=== PATIENT | female | born 1960 | race Caucasian/White ===

== ENCOUNTER 2018-09-27 16:50 | Emergency (ER) | payer MEDICARE ==
[~2018-09-27] VITALS: Ht 160 cm; Wt 52.2 kg
[~2018-09-27 16:50] MED LIST: ALBU90OI INH; ALPR.5; AMOCLA500 PO; CEPH500 PO; CETI10 PO; CIPR500 PO; CIPRSO OU; CYCL10; DESO.05TCA TP; DIAZ10 PO; DIAZ2 PO; DIAZ5 PO; DIPH25 PO; DIPH50 PO; DOXY100 PO; DULO30 PO; DULO60 PO; FAMO20 PO; HYDACE5; HYDACE5 PO; HYDACE5325 PO; HYDHCL25 PO; HYDPAM50 PO; IBUP800; IBUP800 PO; Keflex500 MG PO; LORA1 PO; LORA2 PO; METPRE4DP PO; NAPR220 PO; OXYACE5T PO; PRED10 PO; PRED20 PO; PROACE100 PO; PROM12.5S PR; PROM25 PO; Percocet 5-3251 EACH PO; Prednisone20 MG PO; Roxicodone5 MG PO; SEPTRA DS; SKIEMOTC TOP; SULTRIDS PO; TEMA30 PO; TRAM50 PO; TRIA80TC TOP; TRIAOI IH; Valium5 MG PO; Vistaril25 MG PO; Zithromax250 MG PO
== END 2018-09-27 17:59 | disposition home or self-care (01) ==
LOC: ER 16:50
DX: F41.9 Anxiety disorder, unspecified (principal); Z91.013 Allergy to seafood; Z91.030 Bee allergy status; Z88.8 Allergy status to other drugs, medicaments and biological substances; F17.200 Nicotine dependence, unspecified, uncomplicated
CPT/HCPCS: 96372; 99283-25; J2060

== ENCOUNTER 2022-09-19 20:11 | Emergency (ER) | payer MEDICARE ==
[~2022-09-19] VITALS: Ht 160 cm; Wt 52.2 kg
[2022-09-19 20:47] VITALS: BP 153/95
[2022-09-19] MEDS ORDERED: CYMBALTA30 M2 PO (21:12)
[2022-09-19] MEDS ORDERED: AMOCLA875 PO (21:22)
== END 2022-09-19 21:28 | disposition home or self-care (01) ==
LOC: ER 20:11
DX: S51.811A Laceration without foreign body of right forearm, initial encounter (principal); F17.200 Nicotine dependence, unspecified, uncomplicated; Z91.030 Bee allergy status; Z91.048 Other nonmedicinal substance allergy status; Z91.013 Allergy to seafood; W55.03XA Scratched by cat, initial encounter
CPT/HCPCS: 12002; 99283-25

== ENCOUNTER → 2023-12-20 | Day surgery (SDC) | payer MEDICARE ==
[~2023-12-20] MED LIST changes: +AMOCLA875 PO; +ATORVASTATIN CA20 MG PO; +CYMBALTA30 M2 PO; +IBU800 M1 PO
== END ==
LOC: MOI US 07:16 → MOI MAM 08:00
DX: C50.411 Malignant neoplasm of upper-outer quadrant of right female breast (principal); Z91.030 Bee allergy status; Z91.013 Allergy to seafood
CPT/HCPCS: 19285; 77065; A4648; G0279

== ENCOUNTER 2023-12-23 08:31 | Day surgery (SDC) | payer MEDICARE ==
[~2023-12-23] VITALS: Ht 160 cm; Wt 47.5 kg
[~2023-12-23 08:31] MED LIST changes: -ATORVASTATIN CA20 MG PO; -IBU800 M1 PO; +Lactated Ringer's 1,000 ML IV ONE
[2023-12-23] MEDS ORDERED: CeFAZolin Sodium 2,000 MG VIAL ONE (08:39)
[2023-12-23] MEDS ORDERED: NS 50 ML IV ONE (08:40)
[2023-12-23] MEDS ORDERED: ATORVASTATIN CA20 MG PO (08:58)
[2023-12-23] MEDS ORDERED: IBU800 M1 PO (08:58)
[2023-12-23] MEDS ORDERED: Lactated Ringer's 1,000 ML IV ONE (09:19)
[2023-12-23] MEDS ORDERED: propofoL 20 ML IV ONE (09:36)
[2023-12-23] MEDS ORDERED: Ondansetron HCl 2 MG / ML 2ML Vial ONE (09:36)
[2023-12-23] MEDS ORDERED: Dexamethasone Sod Phos 10 MG/ML 1ML VIAL ONE (09:36)
[2023-12-23] MEDS ORDERED: Ketorolac Tromethamine 30mg Vial ONE (09:36)
[2023-12-23] MEDS ORDERED: FentaNYL Citrate 50 MCG/ML 2 ML Injection ONE ×2 (09:36→11:47)
[2023-12-23] MEDS ORDERED: Methylene Blue 1% 100 MG/10 ML VIAL ONE (10:00)
[2023-12-23] MEDS ORDERED: Ropivacaine 0.5% HCL/PF 5 MG/ML 30ML Vial ONE (10:00)
[2023-12-23] MEDS ORDERED: Midazolam HCl 1MG / ML 2ML Vial ONE (10:08)
[2023-12-23] MEDS ORDERED: Scopolamine Hydrobromide Patch ONE (10:08)
[2023-12-23] MEDS ORDERED: HYDROcodone 5-APAP 325 TAB ONE (12:20)
[2023-12-23 13:00] VITALS: BP 136/58
--- NOTE | 2023-12-23 13:02 | NUR ---
12/23/23 1302 Rashmi Ahmadi PT ABLE TO VOID AFTER PROCEDURE. PT PLEASANT AND COOPERATIVE WITH CARE PROVIDED. PT UP TO RECLINER WITH SISTER NEXT TO HER. PT AT A TOLERABLE LEVEL OF PAIN AFTER RECEIVING 100MCG OF FENTANYL VIA IV, AND PAIN PILL NORCO 5/325MG AT 1230. PT STATED THAT SHE HAD BAD HIP PAIN AND RATED HER PAIN A 6-7/10 FOR BILATERAL HIP PAIN. PT COLLECTED ALL PERSONAL BELONGINGS. PT EDUCATION PROVIDED. ALL QUESTIONS ANSWERED AND CONCERNS ADDRESSED.
== END 2023-12-23 12:59 | disposition home or self-care (01) ==
LOC: ORSCSDS 08:31
PROVIDERS: Surgery
PROC: 07B50ZX Excision of Right Axillary Lymphatic, Open Approach, Diagnostic (ICD-10-PCS; principal; 2023-12-23 10:00)
PROC: 0HBT0ZZ Excision of Right Breast, Open Approach (ICD-10-PCS; principal; 2023-12-23 10:00)
DX: C50.411 Malignant neoplasm of upper-outer quadrant of right female breast (principal); D36.0 Benign neoplasm of lymph nodes; Z17.0 Estrogen receptor positive status [ER+]; F17.210 Nicotine dependence, cigarettes, uncomplicated; J44.9 Chronic obstructive pulmonary disease, unspecified; F43.10 Post-traumatic stress disorder, unspecified; F41.8 Other specified anxiety disorders; E78.5 Hyperlipidemia, unspecified; Z79.899 Other long term (current) drug therapy
CPT/HCPCS: 38792; 76098; 88307; 88342; A9270; A9520; J0690; J1100; J1885; J2250; J2405; J2704; J2795; J3010; J7120; Q9968

== ENCOUNTER 2024-01-09 11:20 | Day surgery (SDC) | payer MEDICARE ==
[~2024-01-09] VITALS: Ht 160 cm; Wt 47.7 kg
[~2024-01-09 11:20] MED LIST changes: +ATORVASTATIN CA20 MG PO; +IBU800 M1 PO; -Lactated Ringer's 1,000 ML IV ONE; +Ropivacaine 0.5% HCL/PF 5 MG/ML 30ML Vial ONE
[2024-01-09] MEDS ORDERED: NS 50 ML IV ONE (11:37)
[2024-01-09] MEDS ORDERED: CeFAZolin Sodium 2,000 MG VIAL ONE (11:37)
[2024-01-09] MEDS ORDERED: ALPR1 PO (11:49)
[2024-01-09] MEDS ORDERED: Lactated Ringer's 1,000 ML IV ONE (11:53)
[2024-01-09] MEDS ORDERED: Ipratropium/Albuterol SulF 2.5-0.5MG/3 ML Amp ONE (12:16)
[2024-01-09] MEDS ORDERED: FentaNYL Citrate 50 MCG/ML 2 ML Injection ONE ×2 (13:01→14:17)
[2024-01-09] MEDS ORDERED: propofoL 20 ML IV ONE (13:01)
[2024-01-09] MEDS ORDERED: Ondansetron HCl 2 MG / ML 2ML Vial ONE (13:07)
[2024-01-09] MEDS ORDERED: Dexamethasone Sod Phos 10 MG/ML 1ML VIAL ONE (13:07)
[2024-01-09] MEDS ORDERED: Phenylephrine HCl 100 MCG/ML-NS 10MLSYR (1MG/10ML) ONE (13:08)
[2024-01-09] MEDS ORDERED: Ketorolac Tromethamine 30mg Vial ONE ×2 (13:08→13:22)
--- NOTE | 2024-01-09 13:21 | NUR ---
01/09/24 1320 Soumya Siu SKIN DRY & INTACT, PREVIOUS SURGERY SCAR AT [facility] [place].
[2024-01-09] MEDS ORDERED: HYDROcodone 5-APAP 325 TAB ONE (14:16)
[2024-01-09 14:29] VITALS: BP 143/96
== END 2024-01-09 14:45 | disposition home or self-care (01) ==
LOC: ORSCSDS 11:20
PROVIDERS: Surgery
PROC: 0HBT0ZZ Excision of Right Breast, Open Approach (ICD-10-PCS; principal; 2024-01-09 12:45)
DX: C50.411 Malignant neoplasm of upper-outer quadrant of right female breast (principal); Z17.0 Estrogen receptor positive status [ER+]; Z17.21 Progesterone receptor positive status; J44.9 Chronic obstructive pulmonary disease, unspecified; F41.8 Other specified anxiety disorders; E78.2 Mixed hyperlipidemia; F43.10 Post-traumatic stress disorder, unspecified; F40.01 Agoraphobia with panic disorder; Z79.899 Other long term (current) drug therapy; F17.210 Nicotine dependence, cigarettes, uncomplicated
CPT/HCPCS: 88305; 88307; A9270; J0690; J1100; J1885; J2371; J2405; J2704; J2795; J3010

== ENCOUNTER 2025-01-01 10:15 | Day surgery (SDC) | payer MEDICARE ==
[~2025-01-01] VITALS: Ht 157.5 cm; Wt 46.3 kg
[2025-01-01] VITALS (23 sets, daily range): BP systolic 84–172; BP diastolic 51–94
[~2025-01-01 10:15] MED LIST changes: +ALPR1 PO; -Ropivacaine 0.5% HCL/PF 5 MG/ML 30ML Vial ONE
[2025-01-01] MEDS ORDERED: OMEP20ER PO (11:33)
--- NOTE | 2025-01-01 11:56 | NUR ---
Patient confirms NPO status and agrees with scheduled surgery. Patient States Post-Procedure ride home has been arranged. Patient states colon prep results clear.
--- NOTE | 2025-01-01 12:15 | NUR ---
01/01/25 1215 Maria Del Carmen Tyson CONFIRMED AND REVIEWED H&P, MEDCICATIONS, ALLERGIES, MEDICAL HISTORY, RESPIRATORY HISTORY, VITAL SIGNS, 3-LEAD EKG, CONSENTS, AND PHYSICIAN ORDERS. PATIENT CONFIRMS NPO STATUS AND AGREES WITH SCHEDULED PROCEDURE. MONITOR INTACT WITH CONTINUOUS PULSE OXIMETRY, CAPNOGRAPHY, 3-LEAD EKG, INTERMITTENT BP. SUPPLEMENTAL O2 TO BE TITRATED THROUGHOUT PROCEDURE TO MAINTAIN O2 SATURATION ABOVE 90%. PATIENT DETERMINED TO BE ASA APPROPRIATE FOR PROPOFOL SEDATION PRIOR TO START OF PROCEDURE BY .MALLAMPATI CLASS 1 AIRWAY: COMPLETE VISULATIZATION OF THE SOFT PALATE.
[2025-01-01] MEDS ORDERED: Ondansetron HCl 2 MG / ML 2ML Vial ONE (12:37)
[2025-01-01] MEDS ORDERED: Benzocaine Oral Spray 0.5ML UD ONE (12:58)
--- NOTE | 2025-01-01 13:26 | NUR ---
Patient States Post-Procedure ride home has been arranged. Discharged via wheelchair to private car for ride home. Discharge instructions reviewed with patient. Patient verbalizes understanding. Copy given to patient to take home.
== END 2025-01-01 23:00 | disposition home or self-care (01) ==
LOC: ORSCMMR 10:15 → ORD 13:45 → ORSCMMR 23:00
PROVIDERS: Internal Medicine Gastroenterology
PROC: 0DBH8ZX Excision of Cecum, Via Natural or Artificial Opening Endoscopic, Diagnostic (ICD-10-PCS; principal; 2025-01-01 12:00)
PROC: 0DB98ZX Excision of Duodenum, Via Natural or Artificial Opening Endoscopic, Diagnostic (ICD-10-PCS; principal; 2025-01-01 12:00)
PROC: 0DB78ZX Excision of Stomach, Pylorus, Via Natural or Artificial Opening Endoscopic, Diagnostic (ICD-10-PCS; principal; 2025-01-01 12:00)
PROC: 0DBN8ZX Excision of Sigmoid Colon, Via Natural or Artificial Opening Endoscopic, Diagnostic (ICD-10-PCS; principal; 2025-01-01 12:00)
DX: R11.2 Nausea with vomiting, unspecified (principal); R10.33 Periumbilical pain; K25.9 Gastric ulcer, unspecified as acute or chronic, without hemorrhage or perforation; Z12.11 Encounter for screening for malignant neoplasm of colon; D12.5 Benign neoplasm of sigmoid colon; K63.5 Polyp of colon; Z85.3 Personal history of malignant neoplasm of breast; F43.10 Post-traumatic stress disorder, unspecified; J44.9 Chronic obstructive pulmonary disease, unspecified; Z79.899 Other long term (current) drug therapy; F17.210 Nicotine dependence, cigarettes, uncomplicated
CPT/HCPCS: 88305; 88342; A9270; J2405; J2704; J7120